=== PATIENT | female | born 1960 ===

== ENCOUNTER 2022-08-09 08:28 | Day surgery (SDC) | payer OTHER | END 2022-08-09 16:00 | disposition home or self-care (01) | LOC: AMB-ENDOS 08:28 | PROVIDERS: ATTEND Colon & Rectal Surgery | DX: K57.92 Diverticulitis of intestine, part unspecified, without perforation or abscess without bleeding (principal); D12.5 Benign neoplasm of sigmoid colon; K57.90 Diverticulosis of intestine, part unspecified, without perforation or abscess without bleeding; I10 Essential (primary) hypertension; G47.30 Sleep apnea, unspecified; K59.00 Constipation, unspecified; Z20.822 Contact with and (suspected) exposure to COVID-19 ==